=== PATIENT | male | born 1960 | race American Indian/Alaskan Native ===

== ENCOUNTER 2021-10-03 10:09 | Day surgery (SDC) | payer BC ==
[2021-10-03] MEDS ORDERED: LACTATED RINGERS 1,000 ML ONE (10:41)
[2021-10-03] MEDS ORDERED: HYDROmorphone 0.5 MG/0.5 ML INJ IV PRN ×2 (10:54)
[2021-10-03] MEDS ORDERED: ONDANSETRON 4 MG/2 ML INJ IV PRN (10:54)
--- NOTE | 2021-10-03 10:55 | Anesthesia Day of Surgery ---
Anesthesia Day of Surgery - Day of Surgery Patient Examined: Yes Patient H&P Reviewed: Yes Patient is NPO: Yes
--- NOTE | 2021-10-03 10:56 | Anesthesia Consultation ---
Anesthesia Consult and Med Hx Date of service: 10/03/21 - Airway Anesthetic Teeth Evaluation: Good, Chipped (Filling came off) ROM Head & Neck: Adequate Mental/Hyoid Distance: Adequate Mallampati Class: Class I Intubation Access Assessment: Good - Pre-Operative Health Status ASA Pre-Surgery Classification: ASA1 Proposed Anesthetic Plan: General - Pulmonary Hx Smoking: No Hx Sleep Apnea: No (LUIS MANUEL PRE SCREEN LOW RISK) - Cardiovascular System Hx Hypertension: No - Central Nervous System Hx Psychiatric Problems: No - Gastrointestinal Hx Gastroesophageal Reflux Disease: No - Hematic Hx Anemia: Yes ( CHILD ONLY) Hx Sickle Cell Disease: No - Other Systems Hx Cancer: No Hx Obesity: No
[2021-10-03] MEDS ORDERED: MIDAZOLAM 2 MG/2 ML INJ IV NR (11:00)
[2021-10-03] MEDS ORDERED: CELECOXIB 200 MG CAP PO NR (11:00)
[2021-10-03] MEDS ORDERED: LACTATED RINGERS 1,000 ML IV SCH (11:00)
[2021-10-03] MEDS ORDERED: BUPIVACAINE/PF (0.25%) 2.5 MG/ML 10 ML VIAL INFILTRATI ONE ×2 (11:31→12:16)
[2021-10-03] MEDS ORDERED: EPINEPHrine/PF 1 MG/1 ML INJ ONE (11:32)
[2021-10-03] MEDS ORDERED: LIDOCAINE MPF (2%) 20 MG/1 ML VIAL 5 ML ONE ×2 (11:33→12:13)
[2021-10-03] MEDS ORDERED: HYDROmorphone 1 MG/1 ML INJ ONE (11:33)
[2021-10-03] MEDS ORDERED: propofoL 200 MG/20 ML VIAL IV ONE (11:33)
[2021-10-03] MEDS ORDERED: ceFAZolin/Water 2 GM/20 ML 2 GM/20 ML SYRINGE IV ONE (11:41)
[2021-10-03] MEDS ORDERED: ACETAMINOPHEN 500 MG TAB PO ONE (12:00)
[2021-10-03] MEDS ORDERED: MAGNESIUM OXIDE 400 MG TAB PO ONE (12:00)
[2021-10-03] MEDS ORDERED: ONDANSETRON 4 MG/2 ML INJ ONE (12:13)
[2021-10-03] MEDS ORDERED: dexAMETHasone 20 MG/5 ML VIAL ONE (12:13)
[2021-10-03] MEDS ORDERED: SODIUM CHLORIDE 0.9% IRRIG SOLN 2000 ML IR ONE (12:17)
[2021-10-03] MEDS ORDERED: EPINEPHrine/PF 1 MG/1 ML INJ IV ONE (12:17)
--- NOTE | 2021-10-03 12:27 | Discharge Summary ---
Short Stay Discharge Plan Weight Bearing Status: Weight Bear as Tolerated Diet: regular Wound: change dressing (In 2 days) Durable Medical Equipment Needed Upon Discharge: Crutches Follow up with: PRIMARY MD DAVID [Primary Care Provider] - 7 Days QUIQUE CLAROS II, MD [Staff Physician] - 14 Days
[2021-10-03] MEDS ORDERED: GLYCOPYRROLATE 0.4 MG/2 ML INJ ONE (12:59)
[2021-10-03] MEDS ORDERED: GLYCOPYRROLATE 0.4 MG/2 ML INJ IV ONE (13:00)
[2021-10-03] MEDS ORDERED: ceFAZolin/STERILE WATER 2 GM/20 ML SYRINGE IV NR (13:00)
[2021-10-03 14:24] VITALS: BP 112/71
--- NOTE | 2021-10-03 17:58 | Post Anesthesia Evaluation ---
- Post Anesthesia Evaluation Patient Participated: Yes Airway Patent: Yes Stable Respiratory Function: Yes Nausea/Vomiting: No Temp > 96.8F: Yes Pain Manageable: Yes Adequeate Hydration: Yes Anesthesia Complications: No Block Receding Appropriately: Not Applicable Patient on Ventilator: No
--- NOTE | 2021-10-07 09:00 | Operative Report ---
Operative Report Operative Report: Preop Diagnosis: Right knee medial meniscus tear Postop Diagnosis: Same Procedure: Right knee partial medial meniscectomy Surgeon: Daquan Ferraro MD Assist: None Anesthesia: GETA Complications: None Specimens: None Tourniquet Time: 27 minutes EBL: <5 cc Preop Meds: Ancef 2 G Intraop Meds: 0.25% Marcaine (20 cc) Findings: Tear of the posterior horn of the medial meniscus in the red-white zone EUA: Full range of motion with no instability Indications: 61 yo male with Right knee pain and findings consistent with a medial meniscus tear. Surgery was recommended. The risks and benefits of surgery were discussed with the patient, including bleeding, infection, need for reoperation and DVT. The patient understood the risk and consented to undergo surgery. Technique: In the preop holding area the site was marked with a surgical marking pen. The patient received 2 grams of Ancef prior to skin incision. A timeout was performed confirming the right side as the correct side.Tourniquet was inflated to 300 mm of Hg. Standard anteromedial and anterolateral portals were made and the scope was introduced into the knee. The lateral compartment was normal, with no meniscal or articular cartilage pathology. The patellofemoral joint had some grade 3 chondromalacia. The ACL and PCL were intact. There was noted to be a tear of the medial meniscus posterior horn, an oblique tear that extended into the red-white zone. Using an oscillating shaver and biter, the meniscus was debrided back to a stable rim. The arthroscope was removed and incisions were closed with a a 3-0 Nylon. Portals were injected with 0.25% Marcaine. The patient was awakened and taken to the recovey room in stable condition. Postop Plan: Patient is weight bear as tolerated and can begin physical therapy immediately. We will see him in the office in 2 weeks for followup.
== END 2021-10-03 14:45 | disposition home or self-care (01) ==
LOC: OR 10:09
PROVIDERS: ATTEND Orthopaedic Surgery Sports Medicine
DX: S83.241A Other tear of medial meniscus, current injury, right knee, initial encounter (principal); D64.9 Anemia, unspecified; Z79.899 Other long term (current) drug therapy; X58.XXXA Exposure to other specified factors, initial encounter; Y93.89 Activity, other specified; Y92.89 Other specified places as the place of occurrence of the external cause; Y99.8 Other external cause status
CPT/HCPCS: 29881; J0171; J0690; J1100; J1170; J1815; J2250; J2405; J2704; J3490; J7120